=== PATIENT | male | born 2000 | race Caucasian/White ===

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

== ENCOUNTER 2021-03-05 21:04 | Emergency (ER) | payer SELFPAY ==
[2021-03-05 21:13] VITALS: BP 165/103; PULSE 84; RESP 16; TEMP 36.6; O2SAT 98; BMI 30.5
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
[2021-03-05 22:04] VITALS: BP 112/70; PULSE 79; RESP 16; TEMP 36.6; O2SAT 99
== END 2021-03-05 22:04 | disposition home or self-care (01) ==
PROVIDERS: Emergency Provider Emergency Medicine; PCP Physician Assistant
DX: H66.92 Otitis media, unspecified, left ear (principal); F17.210 Nicotine dependence, cigarettes, uncomplicated
CPT/HCPCS: 99281

== ENCOUNTER 2022-06-12 19:29 | Emergency (ER) | payer MEDICAID, SELFPAY ==
[2022-06-12 19:30] VITALS: BP 153/104; PULSE 79; RESP 19; TEMP 36.9; O2SAT 99; BMI 27.3
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
[2022-06-12 20:48] VITALS: BP 118/73; PULSE 79; RESP 17; TEMP 36.8; O2SAT 98
== END 2022-06-12 20:50 | disposition home or self-care (01) ==
PROVIDERS: Emergency Provider Emergency Medicine; PCP Physician Assistant
DX: T23.201A Burn of second degree of right hand, unspecified site, initial encounter (principal); T25.222A Burn of second degree of left foot, initial encounter; X08.8XXA Exposure to other specified smoke, fire and flames, initial encounter
CPT/HCPCS: 90471; 90715; 96372; 99283; 99284